=== PATIENT | female | born 1970 | race Caucasian/White ===

== ENCOUNTER → 2017-05-13 | Outpatient (CLI) | payer BC, SELFPAY | PROVIDERS: Visit Provider Nurse Practitioner Obstetrics & Gynecology | DX: Z12.31 Encounter for screening mammogram for malignant neoplasm of breast (principal) | CPT/HCPCS: 77067; G0202 ==

== ENCOUNTER → 2019-04-26 16:19 | Outpatient (CLI) | payer BC, SELFPAY ==
--- NOTE | 2019-04-26 16:22 | MM_ITS ---
PROCEDURE: MM DIG SCREENING MAMM BI W/CAD CLINICAL INDICATION: Routine Screening Mammogram There is no personal or family history of breast cancer. COMPARISON: DMDXUWAL DIG MAMM-DX UNI LT W ADD VIEW from 10/29/2015 DMSB DIG MAMM-SCREEN MARIA DOLORES from 05/01/2016 DMSB DIG MAMM-SCREEN MARIA DOLORES W/CAD from 05/13/2017 TECHNIQUE: Standard CC and MLO images were obtained. R2 CAD reviewed. FINDINGS: Prominent somewhat heterogenic fibroglandular densities are seen throughout both breasts. The findings are fairly symmetrical bilaterally. There is no new or suspicious lesion in either breast and no suspicious microcalcifications. IMPRESSION: Moderate diffuse breast density with no suspicious lesions seen BI-RAD Category: 1 Negative FOLLOW-UP: 1YR 1 Year Follow-up (A letter has been sent to the patient regarding results of the study.) Dictated by: Dr. Jones Mcgregor MD 04/29/2019 09:[address] Jones Mcgregor MD in [place] 04/29/2019 09:04
== END ==
PROVIDERS: PCP Internal Medicine; Visit Provider Nurse Practitioner Obstetrics & Gynecology
DX: Z12.31 Encounter for screening mammogram for malignant neoplasm of breast (principal)
CPT/HCPCS: 77067

== ENCOUNTER → 2020-07-31 16:44 | Outpatient (CLI) | payer BC, SELFPAY | PROVIDERS: PCP Physician Assistant; Visit Provider Orthopaedic Surgery | DX: Z01.818 Encounter for other preprocedural examination (principal); Z11.52 Encounter for screening for COVID-19; S83.519A Sprain of anterior cruciate ligament of unspecified knee, initial encounter | CPT/HCPCS: U0003 ==

== ENCOUNTER → 2020-12-24 08:33 | Outpatient (CLI) | payer BC, SELFPAY ==
--- NOTE | 2020-12-24 08:33 | MM_ITS ---
PROCEDURE INFORMATION: Exam: MG Screening 3D Mammography Exam date and time: 12/24/2020 8:33 AM Age: 50 years old Clinical indication: screening mammogram TECHNIQUE: Imaging protocol: Screening tomosynthesis and 2D mammography including computer-aided detection (CAD) when performed. COMPARISON: 1. MG MM DIG SCREENING MAMM BI W/CAD 04/26/2019 4:34 PM 2. MG DMSB DIG MAMM-SCREEN MARIA DOLORES W/CAD 05/13/2017 11:17 AM 3. MG DMSB DIG MAMM-SCREEN MARIA DOLORES 05/01/2016 11:03 AM 4. MG DMDXUWAL DIG MAMM-DX UNI LT W ADD VIEW 10/29/2015 3:10 PM FINDINGS: MAMMOGRAPHY: Breast composition: The breast tissue is heterogeneously dense, which may obscure small masses. Mass: None. Architectural distortion: No new or suspicious architectural distortion. Calcifications: No new or suspicious calcifications are present Asymmetric density: No new or suspicious asymmetric density is present Skin thickening: None. Axillary adenopathy: None. IMPRESSION: No mammographic evidence of malignancy. Recommend annual screening mammography unless otherwise clinically indicated. ASSESSMENT: BI-RADS category 1: Negative
== END ==
PROVIDERS: PCP Physician Assistant; Visit Provider Physician Assistant
DX: Z12.31 Encounter for screening mammogram for malignant neoplasm of breast (principal)
CPT/HCPCS: 77063; 77067

== ENCOUNTER → 2021-04-17 14:05 | Outpatient (CLI) | payer BC, SELFPAY ==
[2021-04-17 14:42] LABS: Barbiturates Screen,Urine Negative ng/ml (<200)
[2021-04-17 14:43] LABS: Amphetamine/Metha Screen,Urine Positive ng/ml (<1000); Benzodiazepines Screen,Urine Negative ng/ml (<200)
[2021-04-17 14:44] LABS: Cannabinoid Screen,Urine Negative ng/ml (<50)
[2021-04-17 14:45] LABS: Cocaine Screen,Urine Negative ng/ml (<300); Methadone Screen,Urine Negative ng/ml (<300)
[2021-04-17 14:46] LABS: Opiate Screen,Urine Negative ng/ml (<300); Phencyclidine Screen,Urine Negative ng/ml (<25)
== END ==
PROVIDERS: Visit Provider Physician Assistant
DX: F90.9 Attention-deficit hyperactivity disorder, unspecified type (principal)
CPT/HCPCS: 80305

== ENCOUNTER → 2021-08-26 15:54 | Outpatient (CLI) | payer BC, SELFPAY ==
[2021-08-26 14:00] LABS: Amphetamine/Metha Screen,Urine Positive ng/ml (<1000); Barbiturates Screen,Urine Negative ng/ml (<200)
[2021-08-26 14:01] LABS: Benzodiazepines Screen,Urine Negative ng/ml (<200); Cannabinoid Screen,Urine Negative ng/ml (<50)
[2021-08-26 14:02] LABS: Cocaine Screen,Urine Negative ng/ml (<300)
[2021-08-26 14:03] LABS: Methadone Screen,Urine Negative ng/ml (<300); Opiate Screen,Urine Negative ng/ml (<300)
[2021-08-26 14:04] LABS: Phencyclidine Screen,Urine Negative ng/ml (<25)
== END ==
PROVIDERS: Visit Provider Physician Assistant
DX: F90.9 Attention-deficit hyperactivity disorder, unspecified type (principal)
CPT/HCPCS: 80305

== ENCOUNTER → 2021-12-25 15:43 | Outpatient (CLI) | payer BC, SELFPAY ==
--- NOTE | 2021-12-25 15:43 | MM_ITS ---
PROCEDURE INFORMATION: Exam: MG Bilateral Screening 3D Mammography Exam date and time: 12/25/2021 3:39 PM Age: 51 years old Clinical indication: Screening mammogram. TECHNIQUE: Imaging protocol: Bilateral Screening tomosynthesis and 2D mammography including computer-aided detection (CAD) when performed. COMPARISON: 1. MG MM DIG SCREENING MAMM BI W/CAD 12/24/2020 8:31 AM 2. MG MM DIG SCREENING MAMM BI W/CAD 04/26/2019 4:34 PM 3. MG DMSB DIG MAMM-SCREEN MARIA DOLORES W/CAD 05/13/2017 11:17 AM 4. MG DMSB DIG MAMM-SCREEN MARIA DOLORES 05/01/2016 11:03 AM FINDINGS: MAMMOGRAPHY: Breast composition: The breast is heterogeneously dense, which may obscure small masses. Mass: None. Architectural distortion: No new or suspicious architectural distortion. Calcifications: No new or suspicious calcifications are present Asymmetric density: No new or suspicious asymmetric density is present Skin thickening: None. Axillary adenopathy: None. IMPRESSION: No mammographic evidence of malignancy. Recommend annual screening mammography unless otherwise clinically indicated. ASSESSMENT: BI-RADS category 1: Negative
[2021-12-25 18:17] LABS: Barbiturates Screen,Urine Negative ng/ml (<200); Benzodiazepines Screen,Urine Negative ng/ml (<200)
[2021-12-25 18:18] LABS: Amphetamine/Metha Screen,Urine Positive ng/ml (<1000); Cannabinoid Screen,Urine Negative ng/ml (<50)
[2021-12-25 18:19] LABS: Cocaine Screen,Urine Negative ng/ml (<300)
[2021-12-25 18:20] LABS: Methadone Screen,Urine Negative ng/ml (<300)
[2021-12-25 18:21] LABS: Opiate Screen,Urine Negative ng/ml (<300); Phencyclidine Screen,Urine Negative ng/ml (<25)
== END ==
PROVIDERS: PCP Physician Assistant; Visit Provider Physician Assistant
DX: Z12.31 Encounter for screening mammogram for malignant neoplasm of breast (principal); F90.9 Attention-deficit hyperactivity disorder, unspecified type
CPT/HCPCS: 77063; 77067; 80305

== ENCOUNTER → 2021-12-26 06:14 | Outpatient (CLI) | payer BC, SELFPAY | PROVIDERS: PCP Physician Assistant; Visit Provider Physician Assistant | DX: F90.9 Attention-deficit hyperactivity disorder, unspecified type (principal) ==

== ENCOUNTER → 2023-05-22 09:17 | Outpatient (CLI) | payer BC, SELFPAY ==
[2023-05-22 18:31] LABS: Amphetamine/Metha Screen,Urine Positive ng/ml (<1000); Benzodiazepines Screen,Urine Negative ng/ml (<200)
[2023-05-22 18:32] LABS: Barbiturates Screen,Urine Negative ng/ml (<200)
[2023-05-22 18:33] LABS: Cannabinoid Screen,Urine Negative ng/ml (<50); Cocaine Screen,Urine Negative ng/ml (<300)
[2023-05-22 18:34] LABS: Methadone Screen,Urine Negative ng/ml (<300)
[2023-05-22 18:35] LABS: Opiate Screen,Urine Negative ng/ml (<300); Phencyclidine Screen,Urine Negative ng/ml (<25)
== END ==
LOC: LAB.DROPOF 05-23 09:18
PROVIDERS: PCP Physician Assistant; Visit Provider Physician Assistant
DX: F90.9 Attention-deficit hyperactivity disorder, unspecified type (principal)
CPT/HCPCS: 80307

== ENCOUNTER 2023-06-09 15:59 | Outpatient (CLI) | payer BC, SELFPAY ==
--- NOTE | 2023-06-09 16:00 | MM_ITS ---
PROCEDURE INFORMATION: Exam: MG Bilateral Screening 3D Mammography Exam date and time: 06/09/2023 3:47 PM Age: 52 years old Clinical indication: Screening mammogram TECHNIQUE: Imaging protocol: Bilateral Screening tomosynthesis and 2D mammography including computer-aided detection (CAD) when performed. COMPARISON: 1. MG MM DIG SCREENING MAMM BI W/CAD 12/25/2021 3:39 PM 2. MG MM DIG SCREENING MAMM BI W/CAD 12/24/2020 8:31 AM 3. MG MM DIG SCREENING MAMM BI W/CAD 04/26/2019 4:34 PM 4. MG DMSB DIG MAMM-SCREEN MARIA DOLORES W/CAD 05/13/2017 11:17 AM FINDINGS: MAMMOGRAPHY: Breast composition: There are scattered areas of fibroglandular density. Mass: None. Architectural distortion: No new or suspicious architectural distortion. Calcifications: No new or suspicious calcifications are present Asymmetric density: No new or suspicious asymmetric density is present Skin thickening: None. Axillary adenopathy: None. IMPRESSION: No mammographic evidence of malignancy. Recommend annual screening mammography unless otherwise clinically indicated. ASSESSMENT: BI-RADS category 1: Negative
== END 2023-06-09 23:59 ==
LOC: RAD 16:00
PROVIDERS: PCP Physician Assistant; Visit Provider Physician Assistant
DX: Z12.39 Encounter for other screening for malignant neoplasm of breast (principal)
CPT/HCPCS: 77063; 77067

== ENCOUNTER 2023-12-04 09:26 | Day surgery (SDC) | payer BC, SELFPAY ==
[2023-12-04 09:44] VITALS: BMI 28.3
[2023-12-04 09:52] VITALS: BP 125/87; PULSE 85; RESP 18; TEMP 36.8; O2SAT 100
[2023-12-04] MEDS: LACTATED RINGERS 1000ML 1,000 ML 25 ML IV (10:04)
--- NOTE | 2023-12-04 10:30 | EXP.ANES.CKL ---
[facility] Disclaimer: The information contained in this section may have been updated after the patient was seen, as this information can be updated by other users. Medical History Attention Deficit Hyperactivity Disorder (ADHD) Family History (Updated 12/04/23 @ 09:48 by Flor Lara RN) Other No significant family history Social History (Updated 12/04/23 @ 09:49 by Flor Lara RN) Smoking Status: Never smoker alcohol intake: never substance use type: denies use current occupational status: employed Travel in the last 8 weeks: None caffeine: Yes [facility] Anesthesia Checklist Patient Identification Patient Identification: Arm Band Structural Data Admitted From: Home Planned Operative Procedure/s: Colonoscopy Consent for Planned Operative Procedure(s) Verified: Yes Verified Documents: Surgical Consent and History and Physical NPO Status Verified Time NPO: 00:00 Additional verifications Anesthesia Reactions: No Airway Assessment Mallampati Score:: Class II C-Spine Mobility Assessed: Yes TMJ Mobility Assessed: Yes Dentition: Good Dentition Neurological Assessment Level of Consciousness: Awake, Alert and Appropriate Anesthesia Plan Anesthesia Risk discussed: Yes Anesthesia Plan: Verified ASA Class: II Anesthesia Type: MAC
[2023-12-04 10:38] VITALS: O2SAT 100
--- NOTE | 2023-12-04 11:10 | P.PCN_ITS ---
Procedure: Date: 12/04/23 Patient Date of :: 1970 Procedure Performed:: Total colonoscopy to terminal ileum with multiple polypectomy Indications:: Patient is a 63-year-old female referred for initial screening colonoscopy. Performing Provider:: Malick Herrera MD Referring Provider:: Shannon Ladd Sedation:: MAC sedation Procedure:: Patient history was obtained and appropriate physical examination was performed. Patient's medications and allergies were reviewed. Informed consent was obtained after explaining the benefits, alternatives, and risks of the procedure including, but not limited to, bleeding, perforation, missed lesions, and adverse reaction to anesthesia medications. Patient was transported to endoscopy procedure room. Patient was connected to monitoring devices. Throughout the procedure the patient's blood pressure, pulse, and oxygen saturations were monitored continuously. Patient identification and planned procedure were verified by the staff. Patient was positioned in lateral decubitus position. Digital anorectal exam was performed. Variable stiffness Olympus colonoscope was inserted and advanced under direct visualization to the cecum. Adequacy of the colonic pr eparation was noted. The colonoscope was advanced a short distance into the terminal ileum. The colonoscope was then slowly withdrawn while carefully examining the color, texture, anatomy, and integrity of the mucosoa circumferentially. Within the rectum retroflexion was performed. Colonoscope was then withdrawn. Impression: Colonic preparation was good. In the ascending colon there was an a denomatous appearing polyp removed with cold snare. The descending colon there was a somewhat pedunculated adenomatous polyp removed with cold snare. In the sigmoid colon there was a diminutive polyp removed with biopsy forceps and somewhat of a piecemeal fashion. The rectosigmoid region there was a tiny polyp removed with biopsy forceps. . Findings:: Polyps as noted above Recommendations:: Likely repeat colonoscopy in 3 years Complications:: None Estimated blood obtained (mL): 1 Colonoscopy Component Colonoscopy Component Was a colonoscopy performed during today's procedure?: Yes Recommended follow up colonoscopy of at least 10 years?: No If no, follow up colonoscopy recommended in ___ years?: 3 Reason for not recommending >/= 10 yr follow-up interval?: Polyp pathology pending
[2023-12-04 11:17] VITALS: BP 99/72; PULSE 82; RESP 16; TEMP 36.8; O2SAT 99
[2023-12-04 11:27] VITALS: BP 99/65; PULSE 86; RESP 16; O2SAT 98
[2023-12-04 11:36] VITALS: BP 105/79; PULSE 73; RESP 16; O2SAT 98
== END 2023-12-04 11:37 | disposition home or self-care (01) ==
PROVIDERS: PCP Physician Assistant; Visit Provider Surgery
PROC: 0DJD8ZZ Inspection of Lower Intestinal Tract, Via Natural or Artificial Opening Endoscopic (ICD-10-PCS; CPT 45380; principal; 2023-12-04 10:30)
DX: D12.2 Benign neoplasm of ascending colon; D12.4 Benign neoplasm of descending colon; D12.5 Benign neoplasm of sigmoid colon; Z12.11 Encounter for screening for malignant neoplasm of colon
CPT/HCPCS: 45380; 45385; J2704; J7120

== ENCOUNTER 2024-09-07 17:07 | Outpatient (CLI) | payer BC, SELFPAY ==
--- NOTE | 2024-09-07 17:09 | MM_ITS ---
PROCEDURE INFORMATION: Exam: MG Bilateral Screening 3D Mammography Exam date and time: 09/07/2024 5:14 PM Age: 53 years old Clinical indication: Screening examination TECHNIQUE: Imaging protocol: Bilateral Screening tomosynthesis and 2D mammography including computer-aided detection (CAD) when performed. COMPARISON: 1. MG MM DIG SCREENING MAMM BI W/CAD 06/09/2023 3:47 PM 2. MG MM DIG SCREENING MAMM BI W/CAD 12/25/2021 3:39 PM FINDINGS: MAMMOGRAPHY: Breast composition: There are scattered areas of fibroglandular density. Mass: None. Architectural distortion: None. Calcifications: No suspicious calcifications. Asymmetric density: None. Skin thickening: None. Axillary adenopathy: None. IMPRESSION: No mammographic evidence of malignancy. Annual screening is recommended unless otherwise clinically indicated. ASSESSMENT: BI-RADS Category 1: Negative.
== END 2024-09-07 23:59 | disposition home or self-care (01) ==
LOC: RAD 17:08
PROVIDERS: PCP Physician Assistant; Visit Provider Physician Assistant
DX: Z12.31 Encounter for screening mammogram for malignant neoplasm of breast (principal)
CPT/HCPCS: 77063; 77067